=== PATIENT | male | born 1950 | race Caucasian/White ===

== ENCOUNTER → 2016-10-07 | Outpatient (CLI) | payer OTHER ==
[2016-10-07 12:39] LABS: BASO % 0.2 %; BASO ABS # 0.01 K/uL (0-0.2); COMPLETE YES; EOS % 1.5 %; HEMATOCRIT 42.4 % (42-52); IG% 0.2 %; LYMPH % 31.4 %; LYMPH ABS # 1.44 K/uL (1.2-3.4); MEAN CELL VOLUME 89.3 fL (80-100); MEAN CORPUSCULAR HEMOGLOBIN 31.8 pg (25-34); MEAN CORPUSCULAR HGB CONC 35.6 g/dl (32-36); MEAN PLATELET VOLUME 11.4 fL (7.4-10.4); MONO % 9.2 %; NEUT % 57.5 %; PLATELET COUNT 163 K/uL (130-400); RED BLOOD COUNT 4.75 M/uL (4.7-6.1); WHITE BLOOD COUNT 4.59 K/uL (4.8-10.8)
[2016-10-07 12:55] LABS: BLOOD UREA NITROGEN 23 mg/dl (7-18); BUN/CREATININE RATIO 24.4 (10-20); CALCIUM 8.7 mg/dl (8.5-10.1); CARBON DIOXIDE 31 mmol/L (21-32); CHLORIDE 106 mmol/L (98-107); CREATININE 0.95 mg/dl (0.60-1.40); GLUCOSE 95 mg/dl (70-99); POTASSIUM 4.1 mmol/L (3.5-5.1); SODIUM 142 mmol/L (136-145)
[2016-10-07 12:59] LABS: CHOLESTEROL 126 mg/dl (0-200); CHOLESTEROL/HDL RATIO 3.4; HDL CHOLESTEROL 37 mg/dl; LDL CHOLESTEROL CALCULATED 53 mg/dl; TRIGLYCERIDES 180 mg/dl (0-150); VERY LOW DENSITY LIPOPROT CALC 36 mg/dl
== END | disposition home or self-care (01) ==
LOC: C.LABPBG 08:59
PROVIDERS: ATTEND Internal Medicine Geriatric Medicine
DX: E78.5 Hyperlipidemia, unspecified (principal); G43.909 Migraine, unspecified, not intractable, without status migrainosus; I10 Essential (primary) hypertension; M19.90 Unspecified osteoarthritis, unspecified site

== ENCOUNTER → 2017-04-21 | Outpatient (CLI) | payer OTHER ==
[2017-04-21 13:17] LABS: BLOOD UREA NITROGEN 18 mg/dl (7-18); BUN/CREATININE RATIO 18.5 (10-20); CARBON DIOXIDE 27 mmol/L (21-32); CHLORIDE 106 mmol/L (98-107); CREATININE 0.98 mg/dl (0.60-1.40); GLUCOSE 95 mg/dl (70-99); POTASSIUM 3.9 mmol/L (3.5-5.1); SODIUM 139 mmol/L (136-145)
== END | disposition home or self-care (01) ==
LOC: C.LABPBG 08:20
PROVIDERS: ATTEND Internal Medicine Geriatric Medicine
DX: I10 Essential (primary) hypertension (principal)

== ENCOUNTER → 2017-06-12 | Day surgery (SDC) | payer OTHER ==
[2017-05-29 14:45] VITALS: Ht 180.3 cm; Wt 80.9 kg
[~2017-06-12] VITALS: Ht 180.3 cm; Wt 80.9 kg
[~2017-06-12] MED LIST: ASPCH81X PO; ATOR-22 PO; COEN100C7 PO; LIDOCAINE HCL 2% 2 ML VIAL (20MG/ML) ONE; LISI-788 PO; METO50TA7 PO; MIDAZOLAM HCL 1 MG/ML 2ML VIAL ONE; MULT-506 PO; OMEG10007 PO; ONDANSETRON INJ 2 MG/ML 2 ML VIAL ONE; PROPOFOL IV EMULSION 10 MG/ML 20 ML VIAL IV ONE; [UNRECOGNIZED DRUG - OTHER] PO
--- NOTE | 2017-06-12 11:54 | Endo History and Physical ---
History & Physical Date of Service: Jun 12, 2017. Chief Complaint: hx. malignant carcinoid tumor of rectum Referring Physician: Dr. Austen Mckeon History of Present Illness 66 yo CM who presents for colonoscopy secondary to history of carcinoid of the rectum. Past Surgical History Hx Cardiac Surgery: No Hx Internal Defibrillator: No Hx Pacemaker: No Hx Abdominal Surgery: Yes (APPY, INGUINAL HERNIA) Hx of Implantable Prosthesis: No Hx Post-Op Nausea and Vomiting: No Hx Cancer Surgery: No Hx Thoracic Surgery: No Hx Orthopedic: No Hx Urinary Tract Surgery: No Family History Colon CA Social History Smoking Status: Former Smoker Hx Substance Use: No Hx Alcohol Use: No Allergies Coded Allergies: NO KNOWN DRUG ALLERGIES (Verified Allergy, Unknown, ., 05/29/17) Current Medications Reported Home Medications Medications Dose Route/Sig Max Daily Dose Days Date Category [Hyaluranic Acid] 200 Mg PO QAM 05/29/17 Reported [place]-3 (Fish Oil) 1 Ea Cap 1 Cap PO QAM 05/29/17 Reported Coq10 (Coenzyme Q10 (Ubidecarenone)) 100 Mg Cap 1 Cap PO QAM 05/29/17 Reported Multivitamin (Multivitamins) Tab 1 Tab PO QAM 05/29/17 Reported Aspirin Chewable (Aspirin) 81 Mg Chew 2 Tab PO QAM 05/29/17 Reported Lipitor (Atorvastatin Calcium) 20 Mg Tab 10 Mg PO QAM 05/29/17 Reported Zestoretic 20MG/25MG (HCTZ/Lisinopril) Tab 1 Tab PO QAM 05/29/17 Reported Toprol-Xl (Metoprolol Succinate) 50 Mg Tabcr 50 Mg PO QAM 05/29/17 Reported Vital Signs Weight (Kilograms): 80.91 Height (Feet): 5 Height (Inches): 11 Date Time Temp Pulse Resp B/P (MAP) Pulse Ox O2 Delivery O2 Flow Rate FiO2 06/12/17 11:20 36.5 85 20 142/86 (104) 95 Room Air Physical Exam General Appearance: WD/WN, no apparent distress Respiratory/Chest: Auscultation: breath sounds normal Cardiovascular: Heart Auscultation: RRR Abdomen: Bowel Sounds: normal Inspection & Palpation: soft, non-distended, no tenderness, guarding & rebound Assessment and Plan Assessment: 66 yo CM who presents for colonoscopy secondary to history of carcinoid of the rectum. Plan: Proceed with colonoscopy.
--- NOTE | 2017-06-12 12:27 | GI REPORT ---
Procedure Date: 06/12/2017 12:02 PM Procedure: Colonoscopy Indications: Malignant carcinoid tumor of the rectum Medicines: Monitored Anesthesia Care Complications: No immediate complications. Estimated Blood Loss: Estimated blood loss: none. Procedure: Pre-Anesthesia Assessment: - Prior to the procedure, a History and Physical was performed, and patient medications and allergies were reviewed. The patient's tolerance of previous anesthesia was also reviewed. The risks and benefits of the procedure and the sedation options and risks were discussed with the patient. All questions were answered, and informed consent was obtained. Prior Anticoagulants: The patient has taken aspirin, last dose was 3 days prior to procedure. ASA Grade Assessment: II - A patient with mild systemic disease. After reviewing the risks and benefits, the patient was deemed in satisfactory condition to undergo the procedure. After I obtained informed consent, the scope was passed under direct vision. Throughout the procedure, the patient's blood pressure, pulse, and oxygen saturations were monitored continuously. The scope was introduced through the anus and advanced to the terminal ileum. The colonoscopy was performed without difficulty. The patient tolerated the procedure well. The quality of the bowel preparation was good. The terminal ileum, ileocecal valve, appendiceal orifice, and rectum were photographed. Findings: The perianal and digital rectal examinations were normal. A post polypectomy scar was found in the rectum. The scar tissue was healthy in appearance. Non-bleeding internal hemorrhoids were found during retroflexion. The hemorrhoids were small. Impression: - Post-polypectomy scar in the rectum. - Non-bleeding internal hemorrhoids. - No specimens collected. Recommendation: - Resume previous diet. - Continue present medications. - Repeat colonoscopy in 5 years for surveillance. - Return to primary care physician as previously scheduled. Oscar Blackburn DO 06/12/2017 12:27:01 PM This report has been signed electronically. Note Initiated On: 06/12/2017 12:02 PM I attest to the content of the Intraoperative Record and orders documented therein, exceptions below
--- NOTE | 2017-06-12 12:28 | Discharge Instructions ---
Endoscopy Patient Instructions Date / Procedure(s) Performed Jun 12, 2017. Colonoscopy Allergy Information Coded Allergies: NO KNOWN DRUG ALLERGIES (Verified Allergy, Unknown, ., 05/29/17) Discharge Date / Findings Jun 12, 2017. Internal hemorrhoids Medication Instructions Stopped Medication(s): last dose ASA OK to resume all medications today as prescribed Reported Home Medications Medications Dose Route/Sig Max Daily Dose Days Date Category [Hyaluranic Acid] 200 Mg PO QAM 05/29/17 Reported [place]-3 (Fish Oil) 1 Ea Cap 1 Cap PO QAM 05/29/17 Reported Coq10 (Coenzyme Q10 (Ubidecarenone)) 100 Mg Cap 1 Cap PO QAM 05/29/17 Reported Multivitamin (Multivitamins) Tab 1 Tab PO QAM 05/29/17 Reported Aspirin Chewable (Aspirin) 81 Mg Chew 2 Tab PO QAM 05/29/17 Reported Lipitor (Atorvastatin Calcium) 20 Mg Tab 10 Mg PO QAM 05/29/17 Reported Zestoretic 20MG/25MG (HCTZ/Lisinopril) Tab 1 Tab PO QAM 05/29/17 Reported Toprol-Xl (Metoprolol Succinate) 50 Mg Tabcr 50 Mg PO QAM 05/29/17 Reported Provider Instructions Activity Restrictions - No exercising or heavy lifting for 24 hours. - Do not drink alcohol the day of the procedure. - Do not drive a car or operate machinery until the day after the procedure. - Do not make any important decisions or sign important papers in 24 hours after the procedure. Following Day: - Return to full activity which may include returning to work/school. Diet Start your diet with liquids and light foods (jello, soup, juice, toast). Then eat your usual diet if not nauseated. Treatment For Common After Affects For mild abdominal pain, bloating, or excessive gas: - Rest - Eat lightly - Lie on right side Follow-Up Information Follow-up with Dr. Austen Mckeon as scheduled Anesthesia Information What You Should Know You have had a procedure that required some medicine to reduce anxiety and discomfort. This treatment is called moderate sedation. After receiving the treatment, you may be sleepy, but you will be able to breathe on your own. The effects of the treatment may last for several hours. Follow these instructions along with Activity/Diet recommendations noted above: * Do NOT do anything where dizziness or clumsiness would be dangerous. * Rest quietly at home today, then you can be up and about tomorrow. * Have a responsible person stay with you the rest of today. * You may have had an I.V. today. If so, you may take the dressing off later today. Recommendations Call your doctor if: * Trouble breathing * Continuous vomiting for more than 24 hours * Temperature above 101 degrees * Severe abdominal pain or bloating * Pain not relieved by pain medicine ordered * There is increased drainage or redness from any incision * A large amount of rectal bleeding greater than 2-3 tablespoons. (If you had a polyp/s removed or have hemorrhoids, a small amount of blood - from the rectum is to be expected.) * You have any unanswered questions or concerns. IN THE EVENT OF A SERIOUS EMERGENCY, GO TO THE NEAREST EMERGENCY ROOM Your discharge instructions were prepared by provider Oscar Blackburn. Patient Instructions Signature Page Michele Arias Patient (or Guardian) Signature/Date: I have read and understand the instructions given to me by my caregivers. Caregiver/RN/Doctor Signature/Date: The above-named patient and/or guardian has received patient instructions on this date. + Original Patient Signature Page (only) stays with chart. Please make copy for patient.
--- NOTE | 2017-06-12 12:52 | Anesthesiology Progress Note ---
Anesthesia Post Op Note Date & Time Jun 12, 2017 at 12:52 Vital Signs Pain Intensity: 0 Vital Signs Past 12 Hours Date Time Temp Pulse Resp B/P (MAP) Pulse Ox O2 Delivery O2 Flow Rate FiO2 06/12/17 12:43 75 20 124/78 (93) 96 Room Air 06/12/17 12:26 87 18 122/84 (97) 96 Room Air 06/12/17 11:20 36.5 85 20 142/86 (104) 95 Room Air Notes Mental Status: alert / awake / arousable, participated in evaluation Pt Amnestic to Procedure: Yes Nausea / Vomiting: adequately controlled Pain: adequately controlled Airway Patency, RR, SpO2: stable & adequate BP & HR: stable & adequate Hydration State: stable & adequate Anesthetic Complications: no major complications apparent
[2017-06-12 12:59] VITALS: BP 130/96; PULSE 74; O2SAT 96
== END | disposition home or self-care (01) ==
LOC: C.GI 10:29
PROVIDERS: ATTEND Internal Medicine
DX: Z85.040 Personal history of malignant carcinoid tumor of rectum (principal); K64.8 Other hemorrhoids; M19.90 Unspecified osteoarthritis, unspecified site; Z90.89 Acquired absence of other organs; Z79.899 Other long term (current) drug therapy; Z79.82 Long term (current) use of aspirin

== ENCOUNTER → 2017-11-11 | Outpatient (CLI) | payer OTHER, MEDICARE ==
[~2017-11-11] MED LIST changes: -LIDOCAINE HCL 2% 2 ML VIAL (20MG/ML) ONE; -METO50TA7 PO; +METO50TA8 PO; -MIDAZOLAM HCL 1 MG/ML 2ML VIAL ONE; -ONDANSETRON INJ 2 MG/ML 2 ML VIAL ONE; -PROPOFOL IV EMULSION 10 MG/ML 20 ML VIAL IV ONE
[2017-11-11 13:42] LABS: ALBUMIN 4.2 gm/dl (3.4-5.0); ALT/SGPT 35 U/L (12-78); AST/SGOT 24 U/L (15-37); BLOOD UREA NITROGEN 20 mg/dl (7-18); CARBON DIOXIDE 29 mmol/L (21-32); CREATININE 0.96 mg/dl (0.60-1.40); GLUCOSE 91 mg/dl (70-99); POTASSIUM 3.5 mmol/L (3.5-5.1); SODIUM 138 mmol/L (136-145)
[2017-11-11 13:46] LABS: ALKALINE PHOSPHATASE 66 U/L (45-117); CHOLESTEROL 153 mg/dl (0-200); LDL CHOLESTEROL CALCULATED 56 mg/dl; TOTAL PROTEIN 7.4 gm/dl (6.4-8.2)
== END | disposition home or self-care (01) ==
LOC: C.LABPBG 07:46
PROVIDERS: ATTEND Internal Medicine Geriatric Medicine
DX: I10 Essential (primary) hypertension (principal); E78.5 Hyperlipidemia, unspecified; M19.90 Unspecified osteoarthritis, unspecified site; G43.909 Migraine, unspecified, not intractable, without status migrainosus; G62.9 Polyneuropathy, unspecified; Z11.59 Encounter for screening for other viral diseases